=== PATIENT | male | born 1970 | race Caucasian/White ===

== ENCOUNTER → 2019-08-14 | Outpatient (CLI) | payer OTHER | END | disposition home or self-care (01) | LOC: CVU 15:41 | PROVIDERS: ATTEND Internal Medicine Cardiovascular Disease | DX: R03.0 Elevated blood-pressure reading, without diagnosis of hypertension (principal); Z82.49 Family history of ischemic heart disease and other diseases of the circulatory system | CPT/HCPCS: 93306 ==

== ENCOUNTER 2020-05-12 15:02 | Emergency (ER) | payer OTHER ==
[~2020-05-12] VITALS: Ht 193 cm; Wt 112.2 kg
--- NOTE | 2020-05-12 15:14 | NUR ---
MAGICIAN/ILLUSIONIST: NO CODE NEURO PER DR MORRISON
--- NOTE | 2020-05-12 15:20 | NUR ---
PATIENT WALKED BACK FROM TRIAGE WITH CHIEF C/O NUMBNESS/TINGLING IN RIGHT ARM, AND RIGHT-SIDED CHEST PAIN. PER PATIENT PAIN STARTED SATURDAY, AND HAS GOTTEN PROGRESSIVELY WORSE, NUMBNESS/TINLGING STARTED 3 AM THIS MORNING. PATIENT ALSO REPORTS LEFT HIP PAIN SINCE SATURDAY EVENING, WITH NUMBNESS/TINGLING IN LEFT LEG. PATIENT SOB, PATIENT DENIES TRAUMA. NADN, VSS, SIGNIFICANT OTHER AT SIDE, CALL LIGHT WITHIN REACH.
--- NOTE | 2020-05-12 15:31 | NUR ---
PATIENT AMBULATED TO BATHROOM WITH STEADY GAIT.
--- NOTE | 2020-05-12 15:40 | NUR ---
PATIENT TO MRI.
[2020-05-12] MEDS ORDERED: GADOTERATE 10 MMOL/20 ML VIAL ONE (16:15)
--- NOTE | 2020-05-12 16:52 | NUR ---
PATIENT BACK FROM MRI, RESTING IN GURNEY, NADN, VSS, WARM BLANKET PROVIDED, SIGNIFICANT OTHER AT SIDE, CALL LIGHT WITHIN REACH.
[2020-05-12] MEDS ORDERED: methylPREDNISolone SOD SUCC 125 MG/2 ML ONE (17:59)
[2020-05-12] MEDS ORDERED: ASPIRIN 81 MG TABLET CHEW ONE (17:59)
[2020-05-12] MEDS ORDERED: ASPIRIN 81 MG TABLET CHEW PO ONE (18:00)
[2020-05-12] MEDS ORDERED: ONDANSETRON 2MG/ML, 2ML IVPush ONE (18:00)
[2020-05-12] MEDS ORDERED: methylPREDNISolone SOD SUCC 40 MG/ML IV SCH (18:00)
[2020-05-12] MEDS ORDERED: CARISOPRODOL 350 MG TABLET PO ONE (18:00)
[2020-05-12] MEDS ORDERED: MORPHINE SULFATE 4 MG/ML, 1ML IVPush PRN (18:00)
[2020-05-12] MEDS ORDERED: KETOROLAC 30 MG/1 ML IVPush ONE (18:00)
[2020-05-12] MEDS ORDERED: SODIUM CHLORIDE FLUSH 10ML SYR IVF ONE (18:00)
[2020-05-12] MEDS ORDERED: methylPREDNISolone SOD SUCC 40 MG/ML ONE (18:06)
[2020-05-12] MEDS ORDERED: KETOROLAC 30 MG/1 ML ONE (18:07)
[2020-05-12] MEDS ORDERED: CARISOPRODOL 350 MG TABLET ONE (18:07)
[2020-05-12 18:24] LABS: BASOPHILS % (AUTO) 1 % (0-1); EOSINOPHILS % (AUTO) 1 % (1-7); LYMPHOCYTES % (AUTO) 21 % (22-44); MEAN CORPUSCULAR HEMOGLOBIN 30.9 pg (27.5-34.5); MEAN CORPUSCULAR HGB CONC 35.2 g/dL (33.2-36.2); MEAN PLATELET VOLUME 8.4 fL (7.4-10.4); MONOCYTES % (AUTO) 11 % (2-9); NEUTROPHILS % (AUTO) 67 % (42-75); PLATELET COUNT 270 x10^3/uL (130-400); RED BLOOD COUNT 4.85 x10^6/uL (4.38-5.82); RED CELL DISTRIBUTION WIDTH 13.5 % (9.4-14.8)
[2020-05-12 18:33] LABS: MD NO
[2020-05-12 18:35] LABS: ALANINE AMINOTRANSFERASE 39 U/L (12-78); ALBUMIN 3.8 g/dL (3.4-5.0); ANION GAP 5 mmol/L (5-15); CALCIUM 8.7 mg/dL (8.5-10.1); CHLORIDE 107 mmol/L (98-107); CREATININE 0.92 mg/dL (0.7-1.3)
[2020-05-12 18:40] LABS: ALKALINE PHOSPHATASE 69 U/L (45-117); BILIRUBIN,TOTAL 0.4 mg/dL (0.2-1.0); TOTAL PROTEIN 7.7 g/dL (6.4-8.2); TROPONIN I < 0.015 ng/mL (0.000-0.045)
--- NOTE | 2020-05-12 18:40 | NUR ---
20 GAUGE IV STARTED R-AC, PATIENT MEDICATED PER [facility]MAR. PATIENT REFUSING ZOFRAN AND MORPHINE AT THIS TIME. NADN, VSS, SIGNIFICANT OTHER AT BEDSIDE, CALL LIGHT WITHIN REACH.
--- NOTE | 2020-05-12 18:49 | NUR ---
ERMD AT BEDSIDE TO DISCUSS POC.
[2020-05-12 18:53] VITALS: BP 140/104
--- NOTE | 2020-05-12 19:30 | NUR ---
Patient and significant other given discharge instructions and prescriptions and they have confirmed that they understand the instructions. Patient stable and ambulatory with steady gait from ED with significant other.
== END 2020-05-12 19:31 | disposition home or self-care (01) ==
LOC: ED 19:00
DX: M54.12 Radiculopathy, cervical region (principal); R20.0 Anesthesia of skin; I10 Essential (primary) hypertension
CPT/HCPCS: 36415; 72156; 80053; 84484; 85025; 93005; 96374; 96375; 99285; A9575; J1885; J2920

== ENCOUNTER → 2021-01-05 | Outpatient (CLI) | payer OTHER ==
[~2021-01-05] MED LIST: CALC-534 PO; HYDR-3248 PO; VALS80TA3 PO
[2021-01-05 16:27] LABS: BASOPHILS % (AUTO) 1 % (0-1); EOSINOPHILS % (AUTO) 2 % (1-7); LYMPHOCYTES % (AUTO) 24 % (22-44); MEAN CORPUSCULAR HEMOGLOBIN 29.8 pg (27.5-34.5); MEAN CORPUSCULAR HGB CONC 33.8 g/dL (33.2-36.2); MEAN PLATELET VOLUME 8.4 fL (7.4-10.4); MONOCYTES % (AUTO) 11 % (2-9); NEUTROPHILS % (AUTO) 63 % (42-75); PLATELET COUNT 264 x10^3/uL (130-400); RED BLOOD COUNT 5.24 x10^6/uL (4.38-5.82); RED CELL DISTRIBUTION WIDTH 13.4 % (9.4-14.8)
[2021-01-05 16:39] LABS: ALANINE AMINOTRANSFERASE 46 U/L (12-78); ANION GAP 7 mmol/L (5-15); CALCIUM 8.8 mg/dL (8.5-10.1); CHLORIDE 105 mmol/L (98-107); CREATININE 0.82 mg/dL (0.7-1.3)
[2021-01-05 16:40] LABS: INTERNATIONAL NORMALIZED RATIO 0.96 (0.93-1.1); PROTHROMBIN TIME 10.3 Seconds (9.6-11.5)
[2021-01-05 16:41] LABS: ALKALINE PHOSPHATASE 68 U/L (45-117); BILIRUBIN,TOTAL 0.6 mg/dL (0.2-1.0); TOTAL PROTEIN 7.8 g/dL (6.4-8.2)
[2021-01-05 16:45] LABS: MICROSCOPIC AUTO
== END | disposition home or self-care (01) ==
LOC: STAR 08:00
PROVIDERS: ATTEND Neurological Surgery
DX: Z01.818 Encounter for other preprocedural examination (principal); M51.26 Other intervertebral disc displacement, lumbar region; I49.3 Ventricular premature depolarization
CPT/HCPCS: 36415; 71046; 80053; 81001; 85025; 85610; 85730; 93005

== ENCOUNTER 2021-01-11 09:20 | Inpatient (IN) | payer OTHER ==
[~2021-01-11] VITALS: Ht 193 cm; Wt 113.9 kg
[2021-01-11] MEDS ORDERED: CHLORHEXIDINE 15 ML UDC PO ONE (10:30)
[2021-01-11] MEDS ORDERED: LACTATED RINGERS 1,000 ML IV SCH (10:30)
[2021-01-11] MEDS ORDERED: VANCOMYCIN 1,000 MG ONE (13:30)
[2021-01-11] MEDS ORDERED: BUPIVACAINE/PF 0.25% ONE (13:30)
[2021-01-11] MEDS ORDERED: GENTAMICIN 80 MG/2 ML ONE (13:30)
[2021-01-11] MEDS ORDERED: ROCURONIUM 10 MG/ML,10ML ONE (14:05)
[2021-01-11] MEDS ORDERED: EPHEDRINE 50 MG/ML, 1ML ONE (14:05)
[2021-01-11] MEDS ORDERED: MIDAZOLAM 1 MG/ML, 2ML ONE (14:05)
[2021-01-11] MEDS ORDERED: GLYCOPYRROLATE 0.2MG/1ML, 5ML ONE (14:05)
[2021-01-11] MEDS ORDERED: NEOSTIGMINE 1 MG/ML, 10ML ONE (14:05)
[2021-01-11] MEDS ORDERED: DEXAMETHASONE 4 MG/ML, 1ML ONE (14:05)
[2021-01-11] MEDS ORDERED: CEFAZOLIN 1,000 MG ONE (14:05)
[2021-01-11] MEDS ORDERED: FENTANYL PF 250 MCG/5ML ONE (14:05)
[2021-01-11] MEDS ORDERED: ONDANSETRON 2MG/ML, 2ML ONE ×2 (14:05)
[2021-01-11] MEDS ORDERED: PROPOFOL 10 MG/ML, 20ML ONE (14:05)
[2021-01-11] MEDS ORDERED: LABETALOL 5MG/ML, 20ML IV PRN (15:00)
[2021-01-11] MEDS ORDERED: OXYcodone 5 MG/5 ML ORAL.SOL UDC PO PRN (15:00)
[2021-01-11] MEDS ORDERED: MEPERIDINE/PF 25MG/0.5ML IVPush PRN (15:00)
[2021-01-11] MEDS ORDERED: PROMETHAZINE 25 MG SUPP PR PRN (15:00)
[2021-01-11] MEDS ORDERED: METHOCARBAMOL 1,000 MG in DEXTROSE 5% 100 ML IV PRN (15:00)
[2021-01-11] MEDS ORDERED: LORazepam 2 MG/ML, 1ML IVPush PRN (15:00)
[2021-01-11] MEDS ORDERED: hydrALAzine 20 MG/ML, 1ML IV PRN (15:00)
[2021-01-11] MEDS ORDERED: PROMETHAZINE 25 MG/ML, 1ML IVPush PRN (15:00)
[2021-01-11] MEDS ORDERED: ONDANSETRON 2MG/ML, 2ML IVPush PRN (15:00)
[2021-01-11] MEDS ORDERED: METOPROLOL 1 MG/ML, 5ML IV PRN (15:00)
[2021-01-11] MEDS ORDERED: ACETAMINOPHEN 325 MG TABLET PO PRN (15:00)
[2021-01-11] MEDS ORDERED: HYDROmorphone 1 MG/ML, 1ML INJ IVPush PRN (15:00)
[2021-01-11] MEDS ORDERED: ALBUTEROL/IPRATROPIUM 2.5MG/0.5MG, 3 ML NPPB PRN (15:00)
[2021-01-11] MEDS ORDERED: HALOPERIDOL 5 MG/ML IV PRN (15:00)
[2021-01-11] MEDS ORDERED: FENTANYL PF 100 MCG/2ML ONE (16:24)
[2021-01-11] MEDS ORDERED: MEPERIDINE/PF 25MG/ML,1ML ONE (16:24)
[2021-01-11] MEDS: FENTANYL PF 100 MCG/2ML IV PRN ×2 (16:34→16:46)
[2021-01-11] MEDS ORDERED: HYDROcodone/APAP 7.5-325MG/15ML UDC ONE (16:45)
[2021-01-11] MEDS ORDERED: HYDROcodone/APAP 7.5-325MG/15ML UDC PO PRN (17:00)
[2021-01-11] MEDS ORDERED: DIPHENHYDRAMINE 25 MG CAPSULE PO PRN (18:30)
[2021-01-11] MEDS ORDERED: DIPHENHYDRAMINE 50 MG/ML, 1ML IVPush PRN (18:30)
[2021-01-11] MEDS ORDERED: morphine SULFATE 10 MG/ML, 1ML IV PRN (18:30)
[2021-01-11] MEDS ORDERED: BISACODYL 10 MG SUPP PR PRN (18:30)
[2021-01-11] MEDS ORDERED: ONDANSETRON 2MG/ML, 2ML IV PRN (18:30)
[2021-01-11] MEDS ORDERED: PROMETHAZINE 25 MG/ML, 1ML IM PRN (18:30)
[2021-01-11] MEDS ORDERED: MAGNESIUM HYDROXIDE 8%, 30ML UDC PO PRN (18:30)
[2021-01-11] MEDS ORDERED: OXYcodone IR 5MG TABLET PO PRN ×2 (18:30)
[2021-01-11 19:19] VITALS: BP 124/79
[2021-01-11] MEDS: NS + 20MEQ KCL 1,000 ML IV SCH (21:00)
[2021-01-11] MEDS: TIZANIDINE 4MG TABLET PO SCH (21:51)
[2021-01-11] MEDS: CEFAZOLIN PMX 1GM/50ML 50 ML IVPB SCH (21:51)
[2021-01-11] MEDS: VALSARTAN 80 MG TABLET PO SCH (21:52)
[2021-01-12 00:12] VITALS: BP 107/64
[2021-01-12] MEDS: HYDROcodone/APAP 10/325 MG TABLET PO PRN ×2 (02:01→09:35)
[2021-01-12] MEDS: TIZANIDINE 4MG TABLET PO SCH ×4 (03:16→21:30)
[2021-01-12 03:28] VITALS: BP 110/70
[2021-01-12] MEDS: CEFAZOLIN PMX 1GM/50ML 50 ML IVPB SCH (05:42)
[2021-01-12] MEDS: NS + 20MEQ KCL 1,000 ML IV SCH ×2 (06:39→16:42)
[2021-01-12 07:03] VITALS: BP 103/61
[2021-01-12] MEDS: SENNA/DOCUSATE TABLET PO SCH (09:35)
[2021-01-12 12:06] VITALS: BP 99/55
[2021-01-12] MEDS ORDERED: DEXAMETHASONE 4 MG TABLET PO SCH (12:30)
[2021-01-12] MEDS: DEXAMETHASONE 4 MG TABLET PO SCH ×2 (16:22→21:30)
[2021-01-12 19:54] VITALS: BP 98/64
[2021-01-12] MEDS: VALSARTAN 80 MG TABLET PO SCH (21:00)
[2021-01-13 00:06] VITALS: BP 108/70
[2021-01-13] MEDS: NS + 20MEQ KCL 1,000 ML IV SCH ×2 (02:58→12:01)
[2021-01-13] MEDS: TIZANIDINE 4MG TABLET PO SCH ×3 (04:02→15:10)
[2021-01-13] MEDS: DEXAMETHASONE 4 MG TABLET PO SCH ×2 (08:13→16:02)
[2021-01-13] MEDS: SENNA/DOCUSATE TABLET PO SCH (08:13)
[2021-01-13 08:54] VITALS: BP 110/61
[2021-01-13] MEDS ORDERED: HYDR-3248 PO (09:57)
[2021-01-13 13:10] VITALS: BP 106/63
== END 2021-01-13 17:43 | disposition home or self-care (01) | DRG 497 ==
LOC: OUT 09:20 → 4NE 17:35 → OUT 17:58 → 4NE 17:58
PROVIDERS: ADMIT Neurological Surgery; ATTEND Neurological Surgery
PROC: 01NB0ZZ Release Lumbar Nerve, Open Approach (ICD-10-PCS; 2021-01-11)
PROC: 0QP004Z Removal of Internal Fixation Device from Lumbar Vertebra, Open Approach (ICD-10-PCS; principal; 2021-01-11 12:30)
DX: M48.061 Spinal stenosis, lumbar region without neurogenic claudication (principal); M51.26 Other intervertebral disc displacement, lumbar region; Z88.0 Allergy status to penicillin; Z88.1 Allergy status to other antibiotic agents; Z88.8 Allergy status to other drugs, medicaments and biological substances; M54.16 Radiculopathy, lumbar region; Z20.822 Contact with and (suspected) exposure to COVID-19
CPT/HCPCS: 72100; G0378; J0690; J1100; J2175; J2250; J2405; J2704; J2710; J3010; J3370; J3480; U0005; J1580; J2800; J7120; U0003